=== PATIENT | male | born 1995 | race African-American/Black ===

== ENCOUNTER → 2018-05-23 | Outpatient (CLI) | payer MEDICAID, SELFPAY | LOC: M OUTALCOH 08:15 | PROVIDERS: ATTEND Psychiatry & Neurology Psychiatry | DX: F12.10 Cannabis abuse, uncomplicated (principal) ==

== ENCOUNTER → 2018-05-31 | Outpatient (RCR) | payer MEDICAID, SELFPAY | LOC: M OUTALCOH 11:34 | PROVIDERS: ATTEND Psychiatry & Neurology Psychiatry | DX: F12.10 Cannabis abuse, uncomplicated (principal); Z72.0 Tobacco use ==

== ENCOUNTER → 2018-09-04 | Outpatient (REF) | payer MEDICAID | LOC: M LAB REF 13:30 | PROVIDERS: ATTEND Surgery | DX: L91.0 Hypertrophic scar (principal) ==

== ENCOUNTER → 2018-09-07 | Outpatient (REF) | payer MEDICAID ==
[2018-09-07 13:17] LABS: BASO % 0.5 % (0.0-1.0); EOS # 0.4 10^3/uL (0.0-0.50); HEMATOCRIT 47.8 % (42.0-52.0); LYMPH # 2.7 10^3/uL (1.5-6.5); LYMPH % 44.4 % (24.0-44.0); MEAN CORPUSCULAR HEMOGLOBIN 26.5 pg (27.0-33.0); MEAN CORPUSCULAR HGB CONC 31.4 g/dl (32.0-36.5); MEAN CORPUSCULAR VOLUME 84.6 fl (80.0-96.0); MONO # 0.3 10^3/uL (0.0-0.8); MONO % 5.1 % (0.0-5.0); NEUTROPHILS # 2.7 10^3/uL (1.8-7.7); NEUTROPHILS % 43.8 % (36.0-66.0); PLATELET COUNT, AUTOMATED 183 10^3/uL (150-450); RED BLOOD COUNT 5.65 10^6/uL (4.30-6.10)
[2018-09-07 13:24] LABS: ALBUMIN 3.7 GM/DL (3.2-5.2); ALT/SGPT 34 U/L (12-78); BILIRUBIN,TOTAL 0.4 MG/DL (0.2-1.0); BLOOD UREA NITROGEN 13 MG/DL (7-18); CALCIUM LEVEL 9.4 MG/DL (8.5-10.1); CARBON DIOXIDE LEVEL 29 MEQ/L (21-32); CHLORIDE LEVEL 106 MEQ/L (98-107); CHOLESTEROL LEVEL 175 MG/DL (<200); CREATININE FOR GFR 1.12 MG/DL (0.70-1.30); FREE T4 0.93 NG/DL (0.76-1.46); GLOMERULAR FILTRATION RATE > 60.0 (>60); GLUCOSE, FASTING 105 MG/DL (70-100); HDL CHOLESTEROL 54 MG/DL (>40); LDL CHOLESTEROL 102 MG/DL (<100); NON-HDL-C 121 MG/DL; SODIUM LEVEL 141 MEQ/L (136-145); TOTAL 25(OH) VITAMIN D 9.9 NG/ML (30.0-100.0); TOTAL PROTEIN 7.8 GM/DL (6.4-8.2); TRIGLYCERIDES LEVEL 96 MG/DL (<150)
[2018-09-07 13:26] LABS: APPEARANCE, URINE CLEAR (CLEAR); BACTERIA, URINE AUTO NEGATIVE (NEGATIVE); BILIRUBIN, URINE AUTO NEGATIVE (NEGATIVE); BLOOD, URINE BLOOD NEGATIVE (NEGATIVE); COLOR, URINE YELLOW (YELLOW); GLUCOSE, URINE (UA) AUTO NEGATIVE (NEGATIVE); KETONE, URINE AUTO NEGATIVE (NEGATIVE); LEUKOCYTE ESTERASE, URINE AUTO NEGATIVE (NEGATIVE); MUCUS, URINE SMALL (NEGATIVE); NITRITE, URINE AUTO NEGATIVE (NEGATIVE); PROTEIN, URINE AUTO NEGATIVE (NEGATIVE); RBC, URINE AUTO 0 /HPF (0-3); SPECIFIC GRAVITY URINE AUTO 1.021 (1.002-1.035); SQUAMOUS EPITHELIAL CELL UR AU 0 /HPF (0-6); WBC, URINE AUTO 1 /HPF (0-3)
[2018-09-07 13:51] LABS: HEMOGLOBIN A1c 5.7 %
[2018-09-09 00:10] LABS: Lyme Disease IgG/IgM Antibodie <0.91 ISR (0.00-0.90); Lyme Disease IgM Ab Quantitati <0.80 index (0.00-0.79)
== END ==
LOC: M LAB REF 12:27
PROVIDERS: ATTEND Family Medicine
DX: Z13.228 Encounter for screening for other metabolic disorders (principal)

== ENCOUNTER 2019-09-03 12:31 | Emergency (ER) | payer MEDICAID, OTHER, SELFPAY ==
[2019-09-03 12:31] VITALS: BP 139/74
[2019-09-03] MEDS ORDERED: benadryl (12:43)
[2019-09-03] MEDS ORDERED: ibuprofen (12:43)
[2019-09-03] MEDS ORDERED: LIDOCAINE 1% SDV 5ML VIAL As Ordered ONE (13:13)
[2019-09-03] MEDS ORDERED: LIDOCAINE 2% MDV 20ML VIAL SC ONE (13:15)
[2019-09-03] MEDS ORDERED: LIDOCAINE 1% MDV 20ML VIAL IM ONE (13:30)
[2019-09-03] MEDS ORDERED: BACT800T5 PO (13:38)
[2019-09-03] MEDS ORDERED: IBUPROFEN 800 MG TAB PO ONE (13:45)
[2019-09-03] MEDS ORDERED: BACTRIM 160MG/800MG DS TAB PO ONE (13:45)
== END 2019-09-03 14:01 | disposition home or self-care (01) ==
LOC: M ED 12:31 → EEVIPCON 12:31 → M ED 14:01
DX: L02.01 Cutaneous abscess of face (principal); K42.9 Umbilical hernia without obstruction or gangrene; F17.210 Nicotine dependence, cigarettes, uncomplicated; Z88.0 Allergy status to penicillin

== ENCOUNTER 2020-03-15 13:26 | Emergency (ER) | payer MEDICAID, OTHER ==
[~2020-03-15] VITALS: Ht 188 cm; Wt 101.6 kg
[~2020-03-15 13:26] MED LIST: BACT800T5 PO; benadryl; ibuprofen
[2020-03-15 13:27] VITALS: BP 120/67
[2020-03-15] MEDS ORDERED: CLEO300C2 PO (13:56)
[2020-03-15] MEDS ORDERED: FLON1SPR NARES (13:56)
== END 2020-03-15 14:07 | disposition home or self-care (01) ==
LOC: M ED 13:26
DX: J02.9 Acute pharyngitis, unspecified (principal); R09.81 Nasal congestion; R59.0 Localized enlarged lymph nodes; J35.1 Hypertrophy of tonsils; Z88.1 Allergy status to other antibiotic agents

== ENCOUNTER → 2020-05-22 | Outpatient (CLI) | payer OTHER ==
[~2020-05-22] MED LIST changes: +CLEO300C2 PO; +FLON1SPR NARES
[2020-05-22 17:43] LABS: HEPATITIS A ANTIBODY IGM NEGATIVE (NEGATIVE); HEPATITIS B CORE ANTIBODY IGM NEGATIVE (NEGATIVE); HEPATITIS B SURFACE ANTIGEN NEGATIVE (NEGATIVE); HEPATITIS C VIRUS ABY INDEX 0.3 INDEX (<0.8); HIV 1&2 SCREEN CENTAUR NEGATIVE (NEGATIVE)
[2020-05-22 21:08] LABS: CHLAMYDIA DNA AMPLIFICATION NEGATIVE (NEGATIVE); GC DNA AMPLIFICATION NEGATIVE (NEGATIVE)
[2020-05-25 15:14] LABS: HSV TYPE I IgG SPECIFIC <0.91 index (0.00-0.90); HSV TYPE II IgG SPECIFIC <0.91 index (0.00-0.90)
== END ==
LOC: M WUC 14:31
PROVIDERS: ATTEND Physician Assistant
DX: Z11.3 Encounter for screening for infections with a predominantly sexual mode of transmission (principal)

== ENCOUNTER → 2021-08-17 | Outpatient (REF) | payer OTHER ==
[2021-08-18 00:11] LABS: APPEARANCE, URINE HAZY (CLEAR); BACTERIA, URINE AUTO NEGATIVE (NEGATIVE); BILIRUBIN, URINE AUTO NEGATIVE (NEGATIVE); BLOOD, URINE BLOOD NEGATIVE (NEGATIVE); COLOR, URINE YELLOW (YELLOW); GLUCOSE, URINE (UA) AUTO NEGATIVE (NEGATIVE); KETONE, URINE AUTO NEGATIVE (NEGATIVE); LEUKOCYTE ESTERASE, URINE AUTO 2+ (NEGATIVE); MUCUS, URINE SMALL (NEGATIVE); NITRITE, URINE AUTO NEGATIVE (NEGATIVE); PROTEIN, URINE AUTO NEGATIVE (NEGATIVE); RBC, URINE AUTO 8 /HPF (0-3); SPECIFIC GRAVITY URINE AUTO 1.029 (1.002-1.035); SQUAMOUS EPITHELIAL CELL UR AU 0 /HPF (0-6); WBC, URINE AUTO 37 /HPF (0-3)
[2021-08-18 01:41] LABS: GC DNA AMPLIFICATION NEGATIVE (NEGATIVE)
== END ==
LOC: M LAB REF 23:22
PROVIDERS: ATTEND Physician Assistant Medical
DX: N39.0 Urinary tract infection, site not specified (principal)